=== PATIENT | male | born 1980 | race Caucasian/White ===

== ENCOUNTER 2017-12-02 12:12 | Emergency (ER) | payer MEDICARE, OTHER, SELFPAY ==
[2017-12-02] VITALS (27 sets, daily range): BP systolic 120–148; BP diastolic 73–90; PULSE 57–108; RESP 12–30; TEMP 36.6; O2SAT 93–100
--- NOTE | 2017-12-02 12:36 | DI.RPTCT_ITS ---
SYMPTOMS/DIAGNOSIS: MULTIPLE BACK SURGERIES, SYNCOPE, FALL, WORSE MID C/L/T SPINE CERVICAL SPINE CT: A noncontrast enhanced examination was carried out according to the usual protocol. Straightening of the normal cervical lordosis is identified. The vertebral bodies are intact. There is mild endplate spurring associated with slight disc space narrowing at C 5 - 6 and C 6 - 7. There is no evidence of spinal stenosis. The posterior elements are intact. The odontoid is well maintained and is closely applied to the anterior arch of C 1. SUMMARY: Straightening of the normal cervical lordosis most likely on the basis of spasm. No evidence of a fracture or dislocation. CRANIAL CT: A noncontrast enhanced examination was performed. There is no evidence of an intra or extracerebral hemorrhage, mass or edema. The berkowitz/white matter differentiation is well maintained. The ventricles are intact. There is no evidence of a skull fracture. The paranasal sinuses are normal. There is no evidence of a mastoid effusion. SUMMARY: No acute intracranial abnormality is identified.
--- NOTE | 2017-12-02 12:36 | DI.RPTCT_ITS ---
SYMPTOMS/DIAGNOSIS: MULTIPLE BACK SURGERIES, SYNCOPE/FALL WITH WORSE MIDLINE CHEST/THORACIC/LUMBAR PAIN CTA OF THE THORAX AND ABDOMEN AND THORACIC AND LUMBAR SPINE RECONSTRUCTIONS: CT angiography was performed with multi slice acquisition and multi planar and 3D reconstruction. The study was carried out with an intravenous administration of 100 cc of Omnipaque 350. There are small regions of bibasilar atelectasis involving the lung bases. The lungs are otherwise unremarkable. There is no pleural effusion. The heart is not enlarged. There is no evidence of pulmonary emboli. There is no evidence of an aortic aneurysm. Evaluation of the abdomen and pelvis reveals no evidence of an aortic aneurysm. The liver, gallbladder, pancreas, spleen, kidneys and adrenals are unremarkable. There is no evidence of bowel obstruction or localized bowel wall abnormality. There is nothing to suggest an acute appendix. There is no evidence of free air or free fluid in the intraperitoneal space. The bladder is incompletely demonstrated. The visualized portions are intact. The reproductive organs have also been excluded from the present images. A stimulator is projected over the soft tissues posteriorly in the lower abdomen on the left side. The stimulator wire extends superiorly to end in the mid to lower dorsal region where postsurgical changes are noted with apparent removal of the spinous process of T9. Reconstructed images of the thoracic and lumbar spine were obtained. There is a mild levorotoscoliosis of the upper dorsal spine. Postsurgical changes involving the posterior elements at T8-T9 are noted , a stimulator wire in place. There is no evidence of a fracture or dislocation. No gross disc space narrowing is evident and the paravertebral soft tissues are intact. Evaluation of the lumbar spine reveals no evidence of a fracture or dislocation. There is no evidence of disc space narrowing; minimal endplate degenerative changes are noted at L3-4. The posterior elements and facet joints are intact. There is no evidence of spinal stenosis. SUMMARY: Note is made of a levorotoscoliotic deformity of the proximal dorsal spine. A stimulator is in position at the T8-T9 level as described above. There is no evidence of a fracture or subluxation involving the dorsal or lumbar vertebrae.
--- NOTE | 2017-12-02 12:36 | ED.GENADUL_ITS ---
Disposition Clinical Impression: Syncope, Chronic back pain Disposition: HOME Condition: Good Instructions: Syncope (ED), Chronic Back Pain (ED) Additional Instructions: Please take your medications as directed. If you notice any numbness or tingling or weakness, any bowel or bladder incontinence, any signs of numbness or tingling in your groin, please return immediately for reevaluation. If you notice any worsening of your symptoms, or any new symptoms such as vomiting, diarrhea, fever, chills, shortness of breath, chest pain, numbness, weakness, or fainting , please return immediately to the emergency department for reevaluation. Please follow up with your primary care provider as soon as possible for reassessment and reevaluation. As always, it was a pleasure participating in your medical care today. Prescriptions: Naloxone HCl [Narcan Nasal [place]] 4 mg NS DIRECTED #2 spray OxyCODONE [Roxicodone] 15 mg PO Q6H #12 tab Medical Decision Making - Medical Decision Making This is a 36-year-old male with chronic back pain, psychiatric issues, multiple previous back surgeries, as well as recent episodes of dizziness and syncope. He presents today for syncope back pain and medication refill. Regards to his dizziness and syncope the patient states that he has passed out a few times in the past few months, and has [facility] [place] for [place] of this and is currently getting a workup. No significant abnormalities have been found as of yet. Regards to his back pain states that he has chronic back pain and multiple previous surgeries however after today's syncopal episode he is slightly worsened back pain than normal. Physical exam demonstrates no signs of focal neurologic deficits, saddle anesthesia, bowel or bladder incontinence, or other significant neurologic abnormalities. In regards to the patient's medication he does take oxycodone regularly, and states that in his travel to [place] for the wedding he might have forgotten some of his medications and his pill organizer at home. He does state that he is currently out of oxycodone though at this time. I did contact his primary care provider Dr. Dougherty at the phone #[phone] and we are referred to his personal cell phone at [phone]. I did discuss the case with him, he states that this is happened in the past. He does confirm that the patient has chronic back pain and narcotic use because of this. However the patient's refill date is 08 December. Which is over 5 days away. At this time with the patient's history of back problems and chronic back pain we will get a CT scan to evaluate for acute fracture pathology secondary to his midline tenderness noted on exam. We will rehydrate the patient, and perform a cardiac workup for potential evaluation of his cost syncope. Although my exam and clinical history this does appear to be consistent with vasovagal/neurocardiogenic syncope. EKG 12:18 PM Rate 94, intervals normal, sinus rhythm, no ST elevations or depressions, no pertinent T-wave inversions. No Q waves. Normal EKG 3:15 PM Patient's laboratory workup including his troponin workup is normal. EKG is benign. Per radiology the patient's CT scans show no acute process, no acute fracture dislocation. No evidence of dissection or aneurysm. No abnormalities in the head. Some degenerative joint disease. The patient does have improvement of his symptoms after treatment. With a normal laboratory workup, benign EKG, complete resolution of his symptoms, I feel symptoms most likely secondary to dehydration, walking around in the hot sun all day, and the benign syncope that he has been having as of late which is getting a workup at his PCPs office. Since the patient is awake, and we have confirmed with his PCP the patient's regular narcotic use, as well as the patient's history of leaving all of his medications at home I do think it is reasonable to give the patient a small amount of narcotics for home use. I had a long discussion with the patient regarding the risks and benefits of this, as well as the importance of close follow-up with his PCP for refill. I have extensively reviewed the treatment plan and discharge instructions with the patient. I have addressed all patient concerns at this time. The patient was made aware of what symptoms to monitor for that would warrant a return to the emergency department. Discussed the plan with the patient, they demonstrate verbal understanding and agreement with our assessment and plan at this time. 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 He lives in [place]. He is up here for a wedding today. Patient states that today he was walking in a field when he got lightheaded, had mild ringing in his ears, noticed some tunnel vision and slowly fell backwards onto the ground. He states he may have hit his head but he is not sure. He had some dizziness at that time. Patient was able to get up on his own afterwards, ambulate to his car and then drive to the ER for further evaluation. Patient also states that he is on chronic oxycodone, but unfortunately has run out of his medications yesterday, and may have left some at home as well. He currently states that his primary concern is getting his medications taking care of, and potentially refilled. Patient states that he has chronic back pain his back pain is similar in nature to his normal back pain but slightly worse than normal. He denies any chest or arm pain. He denies any current headache, vision changes, or new numbness tingling or weakness. He denies any bowel or bladder incontinence, any saddle anesthesia , any other complaints at this time. He denies any IV or illicit drug use. He denies any pertinent family history. - Related Data Docusate Sodium 100 mg PO BID tab-cap 12/31/12 Ascorbic Acid [Vitamin C] 500 mg PO 10/11/14 OxyCODONE [Roxicodone] 1 - 2 tab PO Q4H PRN #240 tab-cap 07/24/15 Cyproheptadine HCl 2 mg PO HS 12/02/17 DULoxetine [Cymbalta] 120 mg PO DAILY 12/02/17 Milligan Carbonate [Milligan Carbonate ER] 300 mg PO HS 12/02/17 Magnesium Oxide [Magox 400] 400 mg PO TID 12/02/17 Melatonin [Melatin] 3 mg PO HS 12/02/17 Naloxone HCl [Narcan Nasal [place]] 4 mg NS DIRECTED #2 spray 12/02/17 OxyCODONE [Roxicodone] 15 mg PO Q6H #12 tab 12/02/17 Prochlorperazine [Compazine] 10 mg PO .Q8H 12/02/17 TraZODone [Desyrel] 100 mg PO HS 12/02/17 Allergies Allergy/AdvReac Type Severity Reaction Status Date / Time No Known Allergies Allergy Unverified 07/24/15 13:05 Review of Systems Other: 10 point review of systems was performed, pertinent positives and negatives are noted in the history of present illness. General Exam - Other Other exam information: 1.Const: Well-nourished, Well-developed, appearing stated age 2.Eyes: PERRL, no conjunctival injection, and symmetrical lids. 3.ENT: Atraumatic external nose and ears. Moist MM. Neck: Symmetric, trachea midline, No thyromegaly. There is no evidence of raccoon eyes, winston sign, CSF rhinorrhea, mastoid tenderness, cranial crepitus, hemotympanum, exophthalmos , or hyphema. Patient demonstrates intact dentition with no signs of tooth avulsion or fracture, no signs of jaw deformity, no evidence of a LeFort's fracture, with an intact palate, nose and orbital region. There is no evidence of a nasal septal hematoma. No proptosis. Jaw closes symmetrically. Airway is clear. 4.CVS: +S1/S2, No murmurs or gallops. Peripheral pulses 2+ and equal in all extremities. Brisk capillary refill in all extremities. 5.RESP: Unlabored respiratory effort. Clear to auscultation bilaterally. No wheezes rales or rhonchi 6.GI: Soft, Nontender/Nondistended, No hepatosplenomegaly. No guarding or rebound. 7.MSK: Normocephalic/Atraumatic, notable previous scars over his lower thoracic vertebra. Extremities w/o deformity or ttp No cyanosis or clubbing, Normal movement of all extremities the patient has midline tenderness present over the cervical thoracic and lumbar spine. The patient states that this is very similar to normal but slightly worsened than normal. Normal ROM in flexion, extension, side bend, and rotation. Patient has +5 out of 5 strength in the lower extremities in dorsiflexion and plantarflexion, knee flexion and extension , hip flexion and extension. There is +2 over 2 dorsalis pedis pulses bilaterally. There is normal sensation to the skin with light touch at the foot , knee, and hip. Normal saddle sensation. Good sensation over the deep sural nerve area bilaterally. Rectal exam deferred. Reflexes are +2 over 4 in the patellar reflex bilaterally. +5 out of 5 strength in the medial, ulnar, radial nerve distribution bilaterally in the hands as well as intact light touch sensation to these dermatomes on the hands 8.Skin: Warm, Dry. No rashes or lesions. 9.Neuro: director of business continuity II-XII grossly intact. Sensation grossly intact, no focal neurologic deficits. 10.Psych: (AAO) x3. Appropriate mood and affect Course Vital Signs - 24 hr 12/02/17 12:17 Temperature 36.6 C Pulse 100 H Respiratory 22 Rate Blood Pressure 148/87 Pulse Oximetry 100
[2017-12-02 12:44] LABS: Abs Immature Grans 0.03 k/cumm (0.0-0.09); Absolute Basophil Count 0.04 k/cumm (0.0-0.2); Absolute Lymphocyte Count 2.64 k/cumm (1.2-3.4); Absolute Monocyte Count 0.66 k/cumm (0.11-0.7); Absolute Neutrophil Count 7.16 k/cumm (1.2-6.7); Basophils % 0.4; Eosinophils % 0.9; HCT 46.7 % (40.0-50.0); HGB 15.7 g/dL (13.5-17.5); Immature Grans % 0.3; Lymphocytes % 24.8; Mean Corp. HGB Concentration 33.6 g/dL (32.0-36.0); Mean Corpuscular Hemoglobin 31.2 pg (27.0-33.0); Mean Corpuscular Volume 92.8 fL (80-95); Mean Platelet Volume 11.4 fL (8.0-11.0); Monocytes % 6.2; Neutrophils % 67.4; Platelet Count 281 x1000/uL (130-400); RBC 5.03 m/cumm (4.50-6.00); RBC Distribution Width 13.8 % (11.8-14.1); White Blood Cell Count 10.63 k/cumm (4.4-10.8)
[2017-12-02] MEDS: Acetaminophen 500 MG TAB 1000 MG PO (12:49)
[2017-12-02] MEDS: Ketorolac 30 MG/ML VIAL IM (12:50)
[2017-12-02] MEDS: methylPREDNISolone SUCC 125 MG VIAL IVP (12:52)
[2017-12-02] MEDS: Lidocaine 5% Patch 1 PATCH TP (12:53)
[2017-12-02 12:54] LABS: Lithium < 0.20 mmol/L (0.60-1.20)
[2017-12-02] MEDS: Normal Saline 1,000 ML 1000 ML IV (12:57)
[2017-12-02 13:07] LABS: ALT 29 U/L (12-78); AST 16 U/L (15-37); Albumin 4.3 g/dL (3.4-5.0); Alkaline Phosphatase 72 U/L (46-116); Anion Gap 10.2 mmol/L (3-11); BUN 16 mg/dL (7-18); Bilirubin, Total 0.4 mg/dL (0.2-1.0); CO2 26.8 mmol/L (21.0-32.0); CREATININE 1.03 mg/dL (0.70-1.30); Calcium 8.8 mg/dL (8.5-10.1); Chloride 103 mmol/L (98-107); Glucose 147 mg/dL (70-100); Magnesium 1.7 mg/dL (1.8-2.4); Potassium 3.7 mmol/L (3.5-5.1); Sodium 140 mmol/L (136-145); TSH 3.32 uIU/mL (0.358-3.74); Total Protein 7.8 g/dL (6.4-8.2); Troponin I < 0.02 ng/mL (0.00-0.06)
[2017-12-02 13:23] LABS: ETHANOL BLOOD < 3.0 mg/dL (<3)
[2017-12-02] MEDS: Omnipaque 350 MG/ML 100 ML BTL IJ (13:49)
== END 2017-12-02 15:31 | disposition home or self-care (01) ==
PROVIDERS: Emergency Provider Student in an Organized Health Care Education/Training Program
DX: R55 Syncope and collapse (principal); M54.5 Low back pain; G89.29 Other chronic pain
CPT/HCPCS: 70450; 71275; 72125; 72128; 72131; 74175; 93005; 96361; 96374; 96375; 99284; 99285; J1885; J2930; J3360; 36415; 80053; 80178; 80320; 83735; 84443; 84484; 85025; 93010; J3490

== ENCOUNTER 2017-12-05 08:45 | Emergency (ER) | payer MEDICARE, OTHER, SELFPAY ==
[2017-12-05] MEDS: Cyclobenzaprine 10 MG TAB 50 MG (09:15)
== END 2017-12-05 09:19 | disposition home or self-care (01) ==
PROVIDERS: Emergency Provider Emergency Medicine
DX: M54.5 Low back pain (principal); G89.29 Other chronic pain
CPT/HCPCS: 99283; 99282